=== PATIENT | female | born 1965 | race Asian ===

== ENCOUNTER 2019-02-03 21:26 | Emergency (ER) | payer SELFPAY ==
[~2019-02-03] VITALS: Ht 162.6 cm; Wt 60.8 kg
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
[2019-02-03 21:45] VITALS: BP 128/74
[2019-02-03] MEDS ORDERED: HYDROcodone/Acetamin 5/325 tab ORAL ONE (21:45)
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
--- NOTE | 2019-02-03 21:55 | NUR ---
ED Nurse Note: Pt was sent down for CT of head.
--- NOTE | 2019-02-03 22:10 | NUR ---
ED Nurse Note: Pt returned from CT of head.
--- NOTE | 2019-02-03 22:11 | NUR ---
[facility] AT BEDSIDE
--- NOTE | 2019-02-03 22:16 | Diagnostic Imaging Report ---
EXAM: CT Head Without Intravenous Contrast CLINICAL HISTORY: TRAUMA TECHNIQUE: Axial computed tomography images of the head/brain without intravenous contrast. CTDI is 70 mGy and DLP is 1365 mGy-cm. One or more of the following dose reduction techniques were used: automated exposure control, adjustment of the mA and/or kV according to patient size, use of iterative reconstruction technique. COMPARISON: No relevant prior studies available. FINDINGS: Brain: Unremarkable. No hemorrhage. No edema. Ventricles: Unremarkable. No ventriculomegaly. Bones/joints: Unremarkable. No acute fracture. Soft tissues: Right scalp hematoma/laceration. Sinuses: Unremarkable as visualized. Mastoid air cells: Unremarkable as visualized. IMPRESSION: No acute intracranial hemorrhage or skull fracture.
[2019-02-03] MEDS ORDERED: IBUPROFEN600 MG ORAL (22:40)
[2019-02-03] MEDS ORDERED: HYDROCODON-ACE1 EA15 ORAL (22:40)
[2019-02-03 22:46] VITALS: BP 127/73
--- NOTE | 2019-02-03 22:46 | NUR ---
ER DISCHARGE NOTE: Patient is cleared to be discharged per [facility]. [facility] [place] applied by . Pain meds given as ordered. Pt is aox4 on room air with stable vital signs. Pt was given dc and prescription instructions and was able to verbalize understanding. Pt ID band and removed. pt is able to ambulate with steady gait and took all belongings.
== END 2019-02-03 22:46 | disposition home or self-care (01) ==
LOC: EDBD 21:26 → EMR 21:35
DX: S09.90XA Unspecified injury of head, initial encounter (principal); S01.01XA Laceration without foreign body of scalp, initial encounter; Y04.2XXA Assault by strike against or bumped into by another person, initial encounter; Z88.0 Allergy status to penicillin; Z85.3 Personal history of malignant neoplasm of breast
CPT/HCPCS: 70450; 99284